=== PATIENT | female | born 1965 | race Caucasian/White ===

== ENCOUNTER 2017-05-13 15:15 | Emergency (ER) | payer OTHER ==
[~2017-05-13] VITALS: Ht 162.6 cm; Wt 64.0 kg
[~2017-05-13 15:15] MED LIST: ACET-818
[2017-05-13 15:24] VITALS: Ht 162.6 cm; Wt 64.0 kg
[2017-05-13] MEDS ORDERED: HYDR25SU23 PR (16:30)
[2017-05-13] MEDS ORDERED: HYDR-902 PO (16:30)
[2017-05-13] MEDS ORDERED: POLY17PO6 PO (16:30)
--- NOTE | 2017-05-13 16:32 | ERD ---
ER Documentation Chief Complaint Date/Time DATE: 05/13/17 TIME: 16:30 Chief Complaint Complains of rectal bleed Hx of Hemrrhoids HPI This a 51-year-old female who is complaining of 2 weeks of rectal bleeding after bowel movements. The patient states she has a lot of anal pain as her stool passes out with bright red bleeding on the toilet paper and dripping into the toilet water. She has no abdominal pain no fever no nausea vomiting diarrhea or constipation. The patient has a history of leukemia and had just finished chemotherapy. No dizziness weakness weight loss or anorexia ROS All systems reviewed and are negative except as per history of present illness. Medications Home Meds Active Scripts Polyethylene Glycol* (Miralax*) 17 Gm Powd.pack, 17 GM PO DAILY, #15 PACKET Prov:TICO SANCHEZ DO 05/13/17 Hydrocodone/Acetaminophen ([place] 10-325 Tablet) 1 Each Tablet, 1 TAB PO Q6H Y for PAIN, #20 TAB Prov:TICO SANCHEZ DO 05/13/17 Hydrocortisone Acetate (Anusol-Hc) 25 Mg Supp.rect, 1 SUPP [place] BID Y for HEMORROID PAIN/ITCHING, #12 SUPP.RECT Prov:TICO SANCHEZ DO 05/13/17 Reported Medications Acetaminophen-Codeine* (Tylenol No.3*) 1 Tab Tab 03/06/12 Allergies Allergies: Coded Allergies: No Known Drug Allergies (Verified Allergy, 03/06/12) PMhx/Soc History of Surgery: No Anesthesia Reaction: No Hx Neurological Disorder: No Hx Respiratory Disorders: No Hx Cardiac Disorders: No Hx Psychiatric Problems: No Hx Miscellaneous Medical Probl: No Hx Alcohol Use: No Hx Substance Use: No Hx Tobacco Use: No Smoking Status: Never smoker FmHx Family History: No coronary disease Physical Exam Vitals Vital Signs Date Time Temp Pulse Resp B/P Pulse Ox O2 Delivery O2 Flow Rate FiO2 05/13/17 15:24 98.9 94 20 141/66 99 Physical Exam Const: Well-developed, well-nourished Head: Atraumatic, normocephalic Eyes: Normal Conjunctiva, PERRLA, EOMI, normal sclera, no nystagmus ENT: Normal External Ears, Nose and Mouth, moist mucus membranes. Neck: Full range of motion. No meningismus, no lymphadenopathy. Resp: Clear to auscultation bilaterally, no wheezing, rhonchi, rales Cardio: Regular rate and rhythm, no murmurs, S1 S2 present Abd: Soft, non tender x 4, non distended. Normal bowel sounds, no guarding or rebound, no pulsitile abdominal masses or bruits Rectal: There are several external hemorrhoid tags that have acute inflammation with skin loss and bleeding sites are apparent. His areas are very tender to palpation Skin: No petechiae or rashes, no ecchymosis , no maculopapular rash Back: No midline or flank tenderness Ext: No cyanosis, or edema, FROM x 4, normal inspection, neurovascularly intact x 4 Neur: Awake and alert, STR 5/5 x 4, sensation intact x 4, no focal findings, cerebellum intact Psych: Normal Mood and Affect Procedures/MDM We will treat with Anusol, [place], sits baths, the patient has lidocaine topically at home Departure Diagnosis: Primary Impression: Bleeding external hemorrhoids Condition: Stable Patient Instructions: Hemorrhoids TICO SANCHEZ DO May 13, 2017 16:32
== END 2017-05-13 16:43 | disposition home or self-care (01) ==
LOC: FTE 15:15
DX: K64.5 Perianal venous thrombosis (principal)
CPT/HCPCS: 99283